=== PATIENT | female | born 1970 | race Caucasian/White ===

== ENCOUNTER → 2016-05-10 | Outpatient (CLI) | payer OTHER ==
--- NOTE | 2016-05-10 14:43 | DI ---
PA /LATERAL CHEST X-RAY, 05/10/2016 2:12 PM : Clinical History: Cough with chest wall pain. Previous Exam: None at this facility. There is no acute soft tissue or bony abnormality. Heart size is normal. Lungs are clear. Mediastinal structures are normal. There are no pulmonary nodules. IMPRESSION: Normal chest x-ray.
== END ==
LOC: MOB RAD 14:15
PROVIDERS: ATTEND Physician Assistant Medical
DX: R05 Cough (principal); R07.81 Pleurodynia
CPT/HCPCS: 71020